=== PATIENT | male | born 1995 | race Caucasian/White ===

== ENCOUNTER 2016-07-17 19:05 | Emergency (ER) | payer OTHER ==
[~2016-07-17] VITALS: Ht 190.5 cm; Wt 97.2 kg
[~2016-07-17 19:05] MED LIST: TPRSR/25 PO
[2016-07-17 19:20] VITALS: TEMP 36.7; Ht 190.5 cm; Wt 97.2 kg
--- NOTE | 2016-07-17 20:00 | DIAGNOSTIC IMAGING REPORT ---
RIGHT HAND MIN 3 VIEWS ROUTINE CLINICAL HISTORY: Right hand pain status post trauma COMPARISON: None. DISCUSSION: There is a fracture involving the midshaft of the fifth metacarpal with 47 degrees of vertex dorsal angulation at the fracture site. There is associated soft tissue swelling IMPRESSION: Acute angulated fracture involving the midshaft of the fifth metacarpal Electronically signed by: Humble Nash M.D. 07/17/2016 7:58 PM Dictated Date/Time: 07/17/2016 7:57 PM
--- NOTE | 2016-07-17 20:24 | EMERGENCY ROOM VISIT NOTE ---
History First contact with patient: 19:58 Chief Complaint: HAND PAIN/INJURY Stated Complaint: R HAND INJURY History of Present Illness The patient is a 21 year old male who presents to the Emergency Room via private vehicle with complaints of "right hand injury". The patient states that he and his friends were attempting to punch and break a board, when he did so and felt immediate pain in the right fifth metacarpal within the hand. He states that the pain is a 6/10. He points to an area of swelling over the right fifth metacarpal within the hand. He is right-handed. He believes the bone is broken. He denies any numbness or tingling. He denies any other injury. Review of Systems A complete 6-point Review of Systems was discussed with the patient, with pertinent positives and negatives listed in the History of Present Illness. All remaining Review of Systems questions can be considered negative unless otherwise specified. Past Medical/Surgical History Heart disease Family History Heart disease, high blood pressure Social History Smoking Status: Never Smoker Alcohol Use: occasionally Marital Status: single Occupation Status: [employer] student Social History: Patient is a [employer] student and admits to tobacco and alcohol use. Current/Historical Medications No Active Prescriptions or Reported Meds Allergies Coded Allergies: No Known Allergies (Unverified , 01/23/16) Physical Exam Vital Signs Date Time Temp Pulse Resp B/P Pulse Ox O2 Delivery O2 Flow Rate FiO2 07/17/16 20:55 83 18 155/93 96 07/17/16 19:20 36.7 90 18 137/86 96 Room Air Physical Exam VITAL SIGNS - Vital signs and nursing notes were reviewed. GENERAL -21-year-old male appearing his stated age who is in no acute distress. Communicates well with provider and answers questions appropriately. SKIN - Without rashes. There is edema and ecchymosis overlying the right fifth metatarsal. There is obvious deformity but the skin is intact. EXTREMITIES - No clubbing or peripheral cyanosis. No pretibial edema present. Patient is neurovascularly intact in the right hand. There is tenderness to palpation overlying the right fifth metacarpal. No other tenderness identified in the right upper extremity. +5/5 strength noted in UE/LE bilaterally. Medical Decision & Procedures ER Provider Diagnostic Interpretation: RIGHT HAND MIN 3 VIEWS ROUTINE CLINICAL HISTORY: Right hand pain status post trauma COMPARISON: None. DISCUSSION: There is a fracture involving the midshaft of the fifth metacarpal with 47 degrees of vertex dorsal angulation at the fracture site. There is associated soft tissue swelling IMPRESSION: Acute angulated fracture involving the midshaft of the fifth metacarpal Electronically signed by: Humble Nash M.D. 07/17/2016 7:58 PM Dictated Date/Time: 07/17/2016 7:57 PM Medical Decision Patient was seen and evaluated as above. After obtaining a thorough history and physical examination radiographs obtained of the right hand. He does have an angulated fifth metacarpal fracture. Patient was educated upon this finding. I do not believe that surgical intervention is required at this time, and believe that he is best managed with an Ortho-Glass ulnar gutter. He was fitted with an ulnar gutter with good fit. He declined pain medication. He is provided the number for the orthopedic surgeon to call first thing Tuesday morning to schedule follow-up. He is neurovascularly intact. He appears to be alert and oriented at this time. He denies any other injury. He was educated upon worrisome symptoms which to return, had questions prior to discharge and was discharged home in good condition. In the evaluation and treatment of this patient, the following differential diagnoses were considered: Wrist Sprain, Wrist Fracture, Wrist Dislocation, Scapholunate Dissociation, Carpal Fracture, Metacarpal Fracture, Radial Styloid Process Fracture, Ulnar Styloid Process Fracture, or Carpal Tunnel Syndrome. Impression Primary Impression: Closed fracture of 5th metacarpal Departure Information Dispostion Home / Self-Care Condition GOOD Prescriptions No Active Prescriptions or Reported Meds Referrals No Doctor, Assigned (PCP) Charles Mast MD Patient Instructions [facility] Additional Instructions You have been treated in the Emergency Department for hand Pain. For pain control, you can use the following obpb-ynf-amuordp medicines (if >12 yo): - Regular strength (325mg/tab) Tylenol (acetaminophen) 2 tabs every 4-6 hours as needed. Do not exceed 12 tablets in a 24 hour period. Avoid taking more than 3 grams (3000 mg) of Tylenol per day. This includes any other sources of acetaminophen you may take on a regular basis. - Regular strength (200 mg/tab) Advil (ibuprofen) 1-2 tabs every 4-6 hours as needed. Do not exceed a dose of 3200 mg per day. If this is a recent injury (<24 hrs), ice can be applied to the area of pain for the first 3 days to help decrease pain and inflammation. You have been provided the number for an Orthopaedic Surgeon. You should call this number as soon as possible to establish a follow-up visit from today's Emergency Department visit. Keep the brace/splint in place until evaluated by Orthopedics. Return to the Emergency Department if your current symptoms worsen despite treatment course outlined above, or if you develop any of the following symptoms : intractable pain despite aforementioned treatment course or new onset of numbness or tingling of the fingers. Please return to the emergency department with any new/concerning symptoms.
[2016-07-17 20:55] VITALS: BP 155/93; PULSE 83; O2SAT 96
[2016-07-22] MEDS ORDERED: IBUP-1050 PO (10:04)
== END 2016-07-17 20:56 | disposition home or self-care (01) ==
LOC: C.EDB 19:08 → C.EDD 20:56
DX: S62.356A Nondisplaced fracture of shaft of fifth metacarpal bone, right hand, initial encounter for closed fracture (principal); W22.8XXA Striking against or struck by other objects, initial encounter; I51.9 Heart disease, unspecified; Z82.49 Family history of ischemic heart disease and other diseases of the circulatory system

== ENCOUNTER → 2016-07-23 | Day surgery (SDC) | payer OTHER ==
[2016-07-22 10:04] VITALS: Ht 190.5 cm; Wt 95.5 kg
[~2016-07-23] VITALS: Ht 190.5 cm; Wt 95.5 kg
[~2016-07-23] MED LIST changes: +ATROPINE SULFATE 0.1 MG/ML 5ML SYR IV PRN; +BUPIVACAINE 0.5 % 5 MG/1 ML MPF 30ML VIAL ONE; +CEFAZOLIN 2000 MG/60 ML D5W IV SCH; +DEXAMETHASONE SOD INJ 4 MG/ML VIAL IV PRN; +DEXAMETHASONE SOD INJ 4 MG/ML VIAL ONE; +EpHEDrine SULFATE INJ 50 MG/ML AMP IV PRN; +FENTANYL CITRATE INJ 50 MCG/1 ML 2 ML VIAL ONE; +IBUP-1050 PO; +KETOROLAC TROMETHAMINE 30 MG/ML VIAL IV. PRN; +LABETALOL HCL IV 5 MG/ML 20ML IV PRN; +LACTATED RINGER'S 1000ML 1,000 ML IV SCH; +LIDOCAINE HCL 2% 2 ML VIAL (20MG/ML) ONE; +LIDOCAINE/EPINEPHRINE 1% INJ 50 ML VIAL ONE; +METOCLOPRAMIDE HCL INJ 5 MG/ML 2 ML VIAL IV PRN; +MIDAZOLAM HCL 1 MG/ML 2ML VIAL ONE; +MoRPHine SULFATE 10 MG/ML CARP/VIAL IV PRN; +MoRPHine SULFATE 2 MG/ML CARP IV PRN; +MoRPHine SULFATE 4 MG/ML 1 ML CARP\\VIAL IV PRN; +ONDANSETRON INJ 2 MG/ML 2 ML VIAL IV PRN; +ONDANSETRON INJ 2 MG/ML 2 ML VIAL ONE; +OXYCODONE/ACETAMINOPHEN 5-325 TAB PO PRN; +PHENYLEPHRINE 100MCG/ML 5ML SYR IV PRN; +PROPOFOL IV EMULSION 10 MG/ML 20 ML VIAL IV ONE; -TPRSR/25 PO
--- NOTE | 2016-07-23 09:00 | History & Physical Bridge - SC ---
H&P Re-Evaluation Bridge Note: I have examined the patient, reviewed the History & Physical and in the interval since the performance of the History & Physical I have noted the following changes of clinical significance: No changes noted
--- NOTE | 2016-07-23 11:02 | [facility] Post Operative Brief Note ---
Immediate Operative Summary Operative Date Jul 23, 2016. Pre-Operative Diagnosis Fracture right 5th metacarpal Post-Operative Diagnosis same Procedure(s) Performed ORIF Right 5th Metacarpal fracture. Surgeon Dr Mast Core Dipper Surgeon(s) Dr Vickie Landaverde Estimated Blood Loss 15 ML Findings Displaced and angulated right 5th Metacarpal fracture. Fluids (cc crystalloids) 1200 Specimens 0 Drains n/a Anesthesia LMA Complication(s) None Disposition Recovery Room / PACU (Stable)
--- NOTE | 2016-07-23 11:07 | Discharge Instructions-SurgCtr ---
Discharge Instructions Date of Service Jul 23, 2016. Visit Reason for Visit: Right Hand 5TH Metacarpal Fx Discharge Discharge Diagnosis / Problem: Status post Open Reduction Internal fixation Right 5th Metacarpal fracture Discharge Goals Goal(s): Decrease discomfort, Improve function, Increase independence Activity Recommendations Activity Limitations: per Instructions/Follow-up section Lifting Limitations: no more than 5 pounds (Do not participate in any activities that may result in trauma or fall. Unlimited core strengthening and leg strengthening without barbells ) May Resume Sexual Activity: when tolerated Shower/Bathe: may shower/bathe in 3 days Driving or Machine Use: Not while on Narcotics or in splint Anesthesia . Post Anesthesia Instructions: If you have had General Anesthesia or IV Sedation: * Do not drive today. * Resume driving when surgeon permits. * Do not make important decisions or sign legal documents today. * Call surgeon for: 1. Temperature elevations greater than 101 degrees F. 2. Uncontrollable pain. 3. Excessive bleeding. 4. Persistent nausea and vomiting. 5. Medication intolerance (nausea, vomiting or rash). * For nausea and vomiting use only clear liquids such as: tea, soda, bouillon until nausea subsides, then gradually increase diet as tolerated. * If you have any concerns or questions, call your surgeon's office. If physician is unavailable and it is an emergency, call 911 or go to the nearest emergency room. . Instructions / Follow-Up Instructions / Follow-Up Dr. Mast in 10-15 days. PT in 3-4 days. Diet Recommendations Home Diet: resume previous diet Procedures Procedures Performed: ORIF Right 5th Metacarpal fracture. Pending Studies Studies pending at discharge: no School Instructions Return To School: time frame (Within 3 days) Medical Emergencies . Who to Call and When: Medical Emergencies: If at any time you feel your situation is an emergency, please call 911 immediately. . Non-Emergent Contact Non-Emergency issues call your: Surgeon Call Non-Emergent contact if: temperature is above 101.5, your pain is not controlled, wound has increased drainage, wound has increased redness . . "Provider Documentation" section prepared by Charles Mast. .
--- NOTE | 2016-07-23 11:08 | [facility] Operative Report ---
Operative Report Operative Date Jul 23, 2016. Pre-Operative Diagnosis Fracture right 5th metacarpal Post-Operative Diagnosis same Procedure(s) Performed ORIF Right 5th Metacarpal fracture. Surgeon Dr Mast Lime Kiln And Recausticizing Operator Surgeon(s) Dr Vickie Landaverde Estimated Blood Loss 15 ML Findings Displaced and angulated right 5th Metacarpal fracture. Fluids (cc crystalloids) 1200 Specimens 0 Drains n/a Anesthesia LMA Complication(s) None Disposition Recovery Room / PACU Implants From the [employer] locking modular hand set: 1) 6-hole 1.5 mm locking and nonlocking straight plate. 2) 1.5 mm nonlocking screws (10 and 11 mm). 3) 1.5 mm locking screws (10, 112, and 12 mm). Indications The patient is a 21 year old male with a displaced right fifth metacarpal fracture, that I recommended surgical fixation. The patient understands the risks of surgery, which include but are not limited to: bleeding, infection, re- operation, damage to nerves and arteries, continued pain, progression of arthritis, mal-union, non-union, and stiffness. The patient understands all of these instructions and explanations, all of their questions have been satisfactorily addressed. The patient has elected to proceed with surgery and the informed consent was signed. Description of Procedure The patient was taken to the Operating Room and placed in the supine position on the operating table. After general anesthetic was administered a multidisciplinary time-out was performed identifying my initials on the right upper extremity as the correct and operative limb. Prior to the incision being made, 2 grams of intravenous Ancef were given. The right upper extremity was prepped and draped in the usual orthopaedic sterile fashion. The planned incision between the fourth and fifth metacarpal was marked and was then injected with 5 cc of a 50:50 mix of 1% Lidocaine plain and 0.5% Bupivacaine with epinephrine. An ulnar nerve block was also performed in the standard fashion using another 5 cc of above-noted mixture. The planned incision was carried down to the extensor mechanism. The distal fragment was exposed first followed by the proximal Fragment. The extensor tendon was protected throughout. The fragments were debrided of hematoma with dental pick , rongeur, irrigation and suction. Care was taken not to devitalize the fragments. The two fragments were reduced and a 1.5 mm locking and nonlocking plate fit best and was held with a K wires. Fluoroscopy was brought in to ensure near anatomic reduction. 2 non-locking screws were placed on either side and in the holes adjacent to the fracture site. Fluoroscopy was used to show a near anatomic reduction with good position of the fracture and the hardware. Then 2 locking screws were placed in the remaining holes of both the proximal and distal fragments in the standard fashion. Final fluoroscopic images showed anatomic reduction with good plate and screw position. The wound was copiously irrigated. The periosteum was closed over the plate with 3-0 Vicryl. A single 3-0 Vicryl was used in the subcutaneous layer. The skin was closed with 4-0 Nylon using horizontal mattress stitch. The wound was dressed with Xeroform gauze, sterile gauze, sterile Webril, and a volar resting splint was placed with yoseph taping the small to the ring finger. The sponge and needle counts were correct. He was taken to the recovery room in stable condition. Post-op Instructions: Pain medicine prescription was given pre-operatively to be taken as needed. The patient will follow up with me in 10-15 days. I attest to the content of the Intraoperative Record and any orders documented therein. Any exceptions are noted below.
[2016-07-23] MEDS: FENTANYL CITRATE INJ 50 MCG/1 ML 2 ML VIAL IV PRN ×2 (11:33→11:40)
--- NOTE | 2016-07-23 12:07 | Anesthesia Progress Nt - [facility] ---
Anesthesia Post Op Note Date & Time Jul 23, 2016 at 12:07 Vital Signs Pain Intensity: 2 Vital Signs Past 12 Hours Date Time Temp Pulse Resp B/P Pulse Ox O2 Delivery O2 Flow Rate FiO2 07/23/16 11:50 36.4 146/91 07/23/16 11:49 83 10 07/23/16 11:49 81 10 92 07/23/16 11:44 76 8 07/23/16 11:44 75 8 145/88 99 07/23/16 11:39 78 6 07/23/16 11:39 78 6 136/79 99 07/23/16 11:35 138/74 07/23/16 11:34 79 5 100 07/23/16 11:34 77 5 07/23/16 11:30 140/75 07/23/16 11:29 83 15 100 07/23/16 11:29 83 15 07/23/16 11:24 83 13 140/74 100 07/23/16 11:24 84 13 07/23/16 11:19 84 10 07/23/16 11:19 84 10 138/73 99 07/23/16 11:15 37.3 89 16 141/72 9 Mask 6 07/23/16 11:14 86 22 141/72 98 07/23/16 11:14 87 22 07/23/16 08:10 36.8 93 22 131/75 96 Room Air Notes Mental Status: alert / awake / arousable, participated in evaluation Pt Amnestic to Procedure: Yes Nausea / Vomiting: adequately controlled Pain: adequately controlled Airway Patency, RR, SpO2: stable & adequate BP & HR: stable & adequate Hydration State: stable & adequate Anesthetic Complications: no major complications apparent
[2016-07-23 12:35] VITALS: BP 121/67; PULSE 74; O2SAT 97
== END | disposition home or self-care (01) ==
LOC: X.SURG 08:00
PROVIDERS: ATTEND Orthopaedic Surgery Sports Medicine
DX: S62.306A Unspecified fracture of fifth metacarpal bone, right hand, initial encounter for closed fracture (principal); W22.8XXA Striking against or struck by other objects, initial encounter; I42.2 Other hypertrophic cardiomyopathy